=== PATIENT | male | born 1985 | race African-American/Black ===

== ENCOUNTER 2016-12-15 08:20 | Emergency (ER) | payer BC, OTHER ==
[~2016-12-15] VITALS: Ht 172.7 cm; Wt 108.9 kg
[2016-12-15] MEDS ORDERED: CARVEDILOL12.5 MG PO (08:28)
[2016-12-15] MEDS ORDERED: ASPIR 8181 M1 PO (08:29)
[2016-12-15] MEDS ORDERED: VASOTEC10 MG PO (08:29)
[2016-12-15] MEDS ORDERED: ALDACTONE25 MG PO (08:29)
[2016-12-15] MEDS ORDERED: DIGOXIN250 MCG PO (08:29)
[2016-12-15 08:52] LABS: HEMATOCRIT 57.7 % (42.0-52.0); HEMOGLOBIN 19.4 gm/dL (14.0-18.0); MCH 31.6 pg (26.0-34.0); MCHC 33.6 g/dL (28.0-37.0); MCV 94.2 fL (80.0-100.0); RBC 6.12 mil/uL (4.50-6.00); RDW 14.2 % (10.5-14.5); WBC 4.9 thou/uL (4.0-11.0)
[2016-12-15 08:55] LABS: CALCIUM 9.3 mg/dL (8.5-10.1); CREATININE 1.3 mg/dL (0.7-1.3); POTASSIUM 4.6 mmol/L (3.5-5.1)
[2016-12-15 09:01] LABS: ALBUMIN 3.9 g/dL (3.4-5.0); TOTAL BILIRUBIN 1.6 mg/dL (<0.1-1.0); TOTAL PROTEIN 6.9 g/dL (6.4-8.2)
[2016-12-15 09:39] VITALS: BP 120/90
== END 2016-12-15 09:40 | disposition home or self-care (01) ==
LOC: ER 08:20
PROVIDERS: Emergency Medicine
DX: R10.33 Periumbilical pain (principal)